=== PATIENT | female | born 1985 | race Caucasian/White ===

== ENCOUNTER 2024-02-13 20:53 | Emergency (ER) | payer BC ==
--- OUTSIDE RECORDS SUMMARY | 2024-02-13 20:56 | XMS REPORT | Continuity of Care Document ---
Author Name Unknown Address [address] [facility]. [address] [place] [address] [facility] Address [address] [facility] [address] [place] [address] Care Team Providers Care Line Production Cook Name Role Phone PCP, PATIENT DOES NOT HAVE A Primary Care Physic frannie Unavailable MERARI ABREU Attending Clinician Unavailable Lab, Ang - Db Attending Clinician Unavailable Merari López Attending Clinician [phone] Denita Soni MD Attending Clinician [phone] DAVID MCKEON Attending Clinician Unavailable Doctor Unassigned, [place] Attending Clinician U navailable DENITA SONI Attending Clinician Unavailable CHRETIEN_F Attending Clinician Unavailable David Mckeon MD Attending Clinician [phone] JESSICA SANCHEZ Attending Clinician Unavailable Kanwal Chisholm Attending Clinician Jessica Sanchez MD Attending Clinician [phone] DENITA SONI Admitting Clinician Unavailable DEZ_Martin Admitting Clinician Unavailable Payers Payer Name Policy Type Policy Number Effective Date Expirati on Date Source BLUE ESSENTIALS HMO [id number] 00:00:00 [place] [id number] 2021 00:00:00 Problems Condition Name Condition Details Condition Category Status Onset Date Resolution Date Last Treatment Date Treating Clinician Comments Source Wesley' s thyroiditi s Wesley' s thyroiditi s Disease Active 03-09 00:00: 00 [facility] Hypothyroi dism Hypothyroi dism Problem Active 05-16 00:00: 00 [facility] Pain of right knee joint Pain of Right Knee Joint Problem Active 05-13 00:00: 00 [facility] Epidermal nevus Epidermal Nevus Problem Active 05-13 00:00: 00 [facility] No known active problems No known active problems Disease [facility] Allergies, Adverse Reactions, Alerts Allergy Name Allergy Type Status Severity Reaction(s) Onset Date Inactive Date Treating Clinician Comments Source NO KNOWN ALLERGIE S Drug Class Active [facility] Social History Social Habit Start Date Stop Date Quantity Comments Source Gender identity [facility] Sexual orientation [facility] History SDOH Alcohol Frequency [facility] History SDOH Alcohol Std Drinks [facility] History SDOH Alcohol Binge [facility] Tobacco use and exposure 2024-02-05 00:00:00 2024-02-05 00:00:00 Smokeless tobacco non-user [facility] Alcohol intake 2024-02-05 00:00:00 2024-02-05 00:00:00 Current drinker of alcohol (finding) [facility] History of Social function 2024-02-05 00:00:00 2024-02-05 00:00:00 [facility] Exposure to SARS-CoV-2 (event) 2023-02-27 00:00:00 2023-03-09 15:39:00 Not sure [facility] Alcohol Comment 2021-11-07 00:00:00 2021-11-07 00:00:00 occasionally [facility] Sex Assigned At 1985 00:00:00 1985 00:00:00 [facility] Smoking Status Start Date Stop Date Source Former Smoker [facility] Never smoked tobacco [facility] Medications Ordered Medication Name Filled Medication Name Start Date Stop Date Current Medication? Ordering Clinician Indication Dosage Frequency Signature (SIG) Comments Components Source levothyroxi ne 50 mcg tablet 02-04 00:00: 00 Yes [id number] 50ug Take 1 tablet by mouth every morning. Please take Levothyrox ine in the morning on an empty stomach, preferably 60 minutes before food, drinks, or take other meds. The following need to be from the thyroid medication by at least 2 hours: calcium, antacids, iron, anything for stomach acid, or soy protein (i.e. soy milk or tofu). If you miss a dose, take it as soon as you remember. [facility] levothyroxi ne 50 mcg tablet 2022-11 2-29 00:00: 00 Yes [id number] 50ug Take 1 tablet by mouth every morning. [facility] levothyroxi ne 50 mcg tablet 9- 00:00: 00 11-03 00:00 :00 No [id number] 50ug Take 1 tablet by mouth every morning. [facility] levothyroxi ne 50 mcg tablet 7- 00:00: 00 07-29 00:00 :00 No [id number] 50ug Take 1 tablet by mouth every morning. [facility] levothyroxi ne 50 mcg tablet 0 4-05 00:00: 00 05-07 00:00 :00 No [id number] 50ug Take 1 tablet by mouth every morning. [facility] levothyroxi ne 50 mcg tablet 0 3-30 00:00: 00 02-11 00:00 :00 No [id number] TAKE 1 TABLET BY MOUTH EVERY DAY IN THE MORNING [facility] levothyroxi ne 50 mcg tablet 2021-11 0-06 00:00: 00 02-05 00:00 :00 No [id number] 50ug Take 1 tablet by mouth every morning. [facility] No known medications 8-02 08:30: 39 No No known medication s [facility] levothyroxi ne 25 mcg tablet 0 7-08 00:00: 00 08-14 00:00 :00 No TAKE 1 TABLET BY MOUTH EVERY DAY DIRECTED [facility] meloxicam 7.5 mg tablet Take 1 tablet every day by oral route. meloxicam 7.5 mg tablet Take 1 tablet every day by oral route. No 1 Q1D meloxicam 7.5 mg tablet Take 1 tablet every day by oral route. [facility] Vital Signs Vital Name Observation Time Observation Value Rivka salazar BP Diastolic 2023-06-11 00:00:00 72 mm[Hg] [facility] Body Weight 2023-06-11 00:00:00 3038.4 [oz_av] [facility] BP Systolic 2023-06-11 00:00:00 123 mm[Hg] [facility] [place] [place] Systolic blood pressure 2023-03-09 20:56:00 129 mm[Hg] [facility] Diastolic blood pressure 2023-03-09 20:56:00 84 mm[Hg] [facility] Body weight 2023-03-09 20:56:00 80.196 kg [facility] BMI 2023-03-09 20:56:00 30.35 kg/m2 [facility] Systolic blood pressure 2022-06-10 13:31:00 129 mm[Hg] [facility] Diastolic blood pressure 2022-06-10 13:31:00 85 mm[Hg] [facility] Heart rate 2022-06-10 13:31:00 90 /min [facility] Body height 2022-06-10 13:31:00 162.6 cm [facility] Body weight 2022-06-10 13:31:00 82.056 kg [facility] BMI 2022-06-10 13:31:00 31.05 kg/m2 [facility] Oxygen saturation in Arterial blood by Pulse oximetry 2022-06-10 13:31:00 99 /min [facility] BP Diastolic 2022-05-13 00:00:00 73 mm[Hg] [facility] Height 2022-05-13 00:00:00 64 [in_i] [facility] BMI (Body Mass Index) 2022-05-13 00:00:00 30.8 kg/m2 [facility] BP Systolic 2022-05-13 00:00:00 106 mm[Hg] [facility] [place] Body Weight 2022-05-13 00:00:00 2867.2 [oz_av] [facility] Procedures Procedure Date / Time Performed Performing Clinician Source REFERRAL- REQUEST/RESPONSE 2023-08-11 05:01:00 Doctor Unassigned, [place] [facility] INSURANCE CORRESPONDENCE 2023-06-30 05:01:00 Doc tor Unassigned, [place] [facility] REFERRAL- REQUEST/RESPONSE 2023-06-11 05:01:00 Doctor Unassigned, [place] [facility] REFERRAL- REQUEST/RESPONSE 2022-06-04 05:01:00 Doctor Unassigned, [place] [facility] Plan of Care Planned Activity Planned Date Details Comments Source Diagnostic Test Pending 2023-06-11 00:00:00 CMP, serum or plasma [code = CMP, serum or plasma] [facility] Diagnostic Test Pending 2023-06-11 00:00:00 CBC w/ auto diff [code = CBC w/ auto diff] [facility] Diagnostic Test Pending 2023-06-11 00:00:00 vitamin D, 25-hydroxy, total, serum [code = vitamin D, 25-hydroxy, total, serum] [facility] Diagnostic Test Pending 2023-06-11 00:00:00 HbA1c (hemoglobin A1c), blood [code = HbA1c (hemoglobin A1c), blood] [facility] Diagnostic Test Pending 2023-06-11 00:00:00 TSH + free T4, serum [code = TSH + free T4, serum] [facility] Diagnostic Test Pending 2023-06-11 00:00:00 lipid panel, serum [code = lipid panel, serum] [facility] Diagnostic Test Pending 2023-06-11 00:00:00 insulin, serum [code = insulin, serum] [facility] Instructions 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 Shop Attendant Visit Lab, Merari Zaman [facility] 1.2.840.114 350.1.13.10 4.2.7.2.686 [id number] [facility] 2023-11-03 00:00:00 2023-11-03 00:00:00 Refill Yessi, [facility] 1.840.114 350.1.13.10 4.2.7.2.686 [id number] [facility] 2023-10-27 00:00:00 2023-10-27 00:00:00 Refill Yessi, [facility] 1.84.114 350.1.13.10 4.2.7.2.686 [id number] [facility] 2023-08-12 16:00:00 2023-08-12 16:00:00 Outpatient DAVID CURRY [facility] [id number] [facility] 2023-08-11 00:00:00 2023-08-11 00:00:00 Orders Only Doctor Unassigned, [place] [address]..114 350.1.13.10 4.2.7.2.686 [id number] [id number] [facility] 2023-08-11 00:00:00 2023-08-11 00:00:00 Patient Secure Msg Doctor Unassigned, [place] [facility] 1..114 350.1.13.10 4.2.7.2.686 [id number] [facility] 2023-07-29 00:00:00 2023-07-29 00:00:00 Refill Yessi, [facility] 1..840.114 350.1.13.10 4.2.7.2.686 [id number] [facility] 2023-07-23 00:00:00 2023-07-23 00:00:00 Patient Secure Msg Soni [facility] 1..840.114 350.1.13.10 4.2.7.2.686 [id number] [facility] 2023-07-17 15:40:57 2023-07-17 23:59:00 Outpatient R DENITA SONI [facility] [id number] [facility] 2023-07-17 15:30:00 2023-07-17 23:59:00 Hospital Encounter Denita Soni [facility] 1..840.114 350.1.13.10 4.2.7.2.686 [id number] [facility] 2023-06-30 00:00:00 2023-06-30 00:00:00 Orders Only Doctor Unassigned, [place] [facility] 1..840.114 350.1.13.10 4.2.7.2.686 [id number] [facility] 2023-06-11 00:00:00 2023-06-11 00:00:00 Outpatient RUDY [facility] [id number] [facility] 2023-06-11 00:00:00 2023-06-11 00:00:00 Kanwal Chisholm APRN-JESÚS C: [address] [place] [address], [address], [place] [address] , Ph. [facility] [id number] [facility] 2023-06-11 00:00:00 2023-06-11 00:00:00 Orders Only Doctor Unassigned, [place] [facility] 1.114 350.1.13.10 4.2.7.2.686 [id number] [facility] 2023-05-08 00:00:00 2023-05-08 00:00:00 Refill Linda [facility] [place] [place]?[facility] 1..114 350.1.13.10 4.2.7.2.686 [id number] [facility] 2023-05-07 00:00:00 2023-05-07 00:00:00 Refill Linda [facility] [place] [place]?[facility] 1.114 350.1.13.10 4.2.7.2.686 [id number] [facility] 2023-05-01 13:30:00 2023-05-01 13:30:00 Outpatient JESSICA COUGHLIN [facility] [id number] [facility] 2023-03-22 00:00:00 2023-03-22 00:00:00 Patient Secure g Yessi [facility] 1.114 350.1.13.10 4.2.7.2.686 [id number] [facility] 2023-03-19 00:00:00 2023-03-19 00:00:00 Patient Secure Msg Doctor Unassigned, [place] [facility] 1.114 350.1.13.10 4.2.7.2.686 [id number] [facility] 2023-03-09 17:00:00 2023-03-09 17:15:00 Skate Shop Attendant Visit Lab, Jay Soni [facility] 1.2.840.114 350.1.13.10 4.2.7.2.686 [id number] [facility] 2023-03-09 16:30:00 2023-03-09 16:42:03 Outpatient R DENITA SONI [facility] [id number] [facility] 2023-03-09 16:30:00 2023-03-09 16:42:03 Office Visit Yessi [facility] JORD[facility] 1.2840.114 350.1.13.10 4.2.7.2.686 [id number] [facility] 2023-02-11 00:00:00 2023-02-11 00:00:00 [facility] 1.2840.114 350.1.13.10 4.2.7.2.686 [id number] [facility] 2023-02-10 00:00:00 2023-02-10 00:00:00 Telephone Denita Soni [facility] JORDY?[facility] 1.2840.114 350.1.13.10 4.2.7.2.686 [id number] [facility] 2023-02-05 00:00:00 2023-02-05 00:00:00 [facility] 1.2840.114 350.1.13.10 4.2.7.2.686 [id number] [facility] 2022-11-10 00:00:00 2022-11-10 00:00:00 [facility] 1.2840.114 350.1.13.10 4.2.7.2.686 [id number] [facility] 2022-11-10 00:00:00 2022-11-10 00:00:00 Patient Secure Msg Doctor Unassigned, [place] [facility] 1.84.114 350.1.13.10 4.2.7.2.686 [id number] [facility] 2022-10-28 09:30:00 2022-10-28 09:30:00 Outpatient R [facility] [id number] [facility] 2022-08-14 00:00:00 2022-08-14 00:00:00 Refill Linda [facility] [place] [place]?[facility] 1.840.114 350.1.13.10 4.2.7.2.686 [id number] [facility] 2022-06-20 00:00:00 2022-06-20 00:00:00 Outpatient R [facility] [id number] [facility] 2022-06-10 09:15:00 2022-06-10 09:39:33 Outpatient R [facility] [id number] [facility] 2022-06-10 09:15:00 2022-06-10 09:30:00 Skate Shop Attendant Visit Lab, Ang - Db Linda [facility] [place] [place]?[facility] 1.840.114 350.1.13.10 4.2.7.2.686 [id number] [facility] 2022-06-10 08:30:00 2022-06-10 09:20:00 Outpatient R [facility] [id number] [facility] 2022-06-10 08:30:00 2022-06-10 09:20:00 Office Visit Linda [facility] [place] [place]?[facility] 1.840.114 350.1.13.10 4.2.7.2.686 [id number] [facility] 2022-06-04 00:00:00 2022-06-04 00:00:00 Orders Only Doctor Unassigned, [place] [facility] 1.2.840.114 350.1.13.10 4.2.7.2.686 [id number] [facility] 2022-05-13 00:00:00 2022-05-13 00:00:00 Outpatient CHRETIEN_F [facility] [id number] [facility] 2022-05-13 00:00:00 2022-05-13 00:00:00 Outpatient Kanwal Chisholm [facility] [id number] 2022-05-13 00:00:00 2022-05-13 00:00:00 Kanwal Chisholm APRN-PUMPING STATION ENGINEER-B C: [address] [place] [address], [address] [address] , Ph. [facility] [id number] [facility] 2022-05-08 04:21:00 2022-05-08 04:21:00 Outpatient CHRETIEN_F [facility] [id number] [facility] 2022-05-02 13:30:00 2022-05-02 14:19:40 Outpatient JESSICA COUGHLIN [facility] [id number] [facility] 2022-05-02 13:30:00 2022-05-02 14:19:40 Office Visit Jessica Sanchez [facility] 1.2.840.114 350.1.13.10 4.2.7.2.686 [id number] [facility] 2022-05-02 13:30:00 2022-05-02 14:19:40 Outpatient JESSICA COUGHLIN [facility] [id number] [facility] 2021-11-07 09:30:00 2021-11-07 10:37:12 Office Visit Jessica Sanchez [facility] 1..840.114 350.1.13.10 4.2.7.2.686 [id number] [facility] 2021-11-07 09:30:00 2021-11-07 10:37:12 Outpatient R JESSICA SANCHEZ [facility] [id number] [facility] 2021-11-07 00:00:00 2021-11-07 00:00:00 Orders Only Doctor Unassigned, [place] [facility] 1..840.114 350.1.13.10 4.2.7.2.686 [id number] [facility] Notes Date/Time Note Provider Source 2024-02-05 12:00:00 A9WG7sL2dCoAJghXYNP3 lamSwriwyP7/XD 9QPDfN52bCSrUH81bFC02QmTEaKKNc3734 -03-29T12:00:00 Images from the original note were not included.Venipuncture collection performed by clean technique on the left anticubitus. Total of 1 attempts were made. Slight pressure and a bandage/dressing were applied to the site(s). The patient experienced no complications. The following specimens were processed according to instructions and sent to [facility] laboratories per lab order on TODAYLT BLUESST 1 RSTREDLAVPPTDK GREEN (LiHep)DK GREEN (SodH)GRAYDK BLUE (K2)DK BLUE (S)ACDBlood CultureNIPT/NTD 85312-2Evajz OirrHV6907-07-08Q26:41:04Nurse NoteTXT1.2.840.192564.1.13.104.2.7 .2.468365|[id number] for patient ovgr46424-7Rgwde NoteLNNARRATIVEFormatted C-CDA narrative text[id number] 94TXYKBZFEWRGFAHLJQHMCKJ8286-28-46 T11:41:041.2.840.677504.1.72.3.15| 1.2.840.543809.1.13.104.2.7.2.7278 [id number] [facility] 2023-11-06 13:40:14 I4O+xcXDZVaB/flfzcMk jQT/fWBOTfh7vt fX0tkSmZ3+Iu0h2AL+lkDYzm/oXCAg96752022T13:40:14 Patient scheduled next follow up. Sending refills on thyroid medication 35223-7Dfjyndhhf encounter RfwoNU2908-49-36N27:41:01Telephone encounter NoteTXT1.2.840.928032.1.13.104.2.7 .2.695141|[id number] for patient pxmx76279-5OimuGHTXCJLGQGWZeohqnxs d C-CDA narrative [id number] D Jet[place] [id number] 17WTFOEXRZPHBAWVELQLPKBH7145-46-58 T13:41:011.2.840.476918.1.72.3.15| 1.2.840.132410.1.13.104.2.7.2.7278 [id number] Dee Baugh LVN [facility] 2023-11-06 10:43:20 U73eWGuqF1YHvmRb9HFM 0qWXDUiZK5SHUc I0ZglpJFrauVO4HCyLejBYfku1u1Vh0063 -12-29T10:43:20 Marichuy Anderson is a 38 year old femalePt is calling wanting to know status on refill for thyroid medication until f/u appointment. States she is completely out of medicine.Please advise, thank you. 30763-4Ofkbxyrma encounter OszbYI2711-03-19L17:44:26Telephone encounter NoteTXT1.2.840.864169.1.13.104.2.7 .2.265657|[id number] for patient mhnp25827-8FhegQQFQKPXYHQKLosexikd d C-CDA narrative etvz928362045Wcjml [address] Zz[id number] 33KPLUCRBBLFQWCGWAIAOQAP0290-53-78 T10:44:261.2.840.434278.1.72.3.15| 1.2.840.892673.1.13.104.2.7.2.7278 [id number] Ifeoma Matson [facility] 2023-11-04 14:13:00 U6dqGYC/NrNvPrihpU6r HgedeiwktAyzpA X1vBKZnoxcZJcCRtjtzaymS/cj+1TV4002T14:13:00 Marichuy Anderson is a 38 year old female pt called in regards of her refill being denied. Pt states that she has a f/u appt w/PLATFORM ENGINEER Merari Abreu on 02/23/24. Pt states that her son was having health issues and was unable to request additional time off for her appts, that is why her f/u were cancelled. Pt is requesting refill for levothyroxine 50 mcg tabletPlease adviseCVS/pharmacy #[id number] - [address]: Hnkcbsnigsehxu signed by Yessenia Vieira at 11/04/2023 2:16 PM HMR46777-5Duscjsezn encounter OvszVR5548-35-39G90:16:51Telephone encounter NoteTXT1.2.840.458194.1.13.104.2.7 .2.548097|[id number] for patient tkrq40065-8WuxvBPSOZOOKBSOQhuumeuq d C-CDA narrative [id number] [id number] 90QBOXNTFXQOVFDPDZHCUTEA4602-92-10 T14:16:511.2.840.762734.1.72.3.15| 1.2.840.752399.1.13.104.2.7.2.7278 [id number] Yessenia Vieira [facility] 2023-11-04 09:33:47 FB9+9UeArM0RtoVxhqLC zFntmYhmHX+b3y CpghbVYbgc7c67UZ9rY5sKRWcUpo5H8401 -12-27T09:33:47 MARIA DOLORES 03/09/23NOV not scheduled, patient cancelled on 08/12 and 09/08.Message sent via [employer] to let her know once her follow up is rescheduled we can send in refills accordingly. Routing to [facility] to reach out to reschedule and once done route back to me so I can send in refill 87678-0Rpckcdmey encounter NfxlXW7262-67-48T37:36:33Telephone encounter NoteTXT1.2.840.728042.1.13.104.2.7 .2.212603|[id number] for patient uqap01948-2DnzqQOKHJWWPNYLLzwwgueq d C-CDA narrative text[id number] 77MFXBREPTWLAVIOZGRJZHMW8394-73-42 T09:36:331.2.840.104063.1.72.3.15| 1.2.840.153426.1.13.104.2.7.2.7278 [id number] [facility] 2023-10-29 11:20:56 KDZ1woiHHovBmvavDryg qX2oWBS6w9QnrG +hecui7WGIvAvEKVIr/73CdYewv9Yz5733 -12-21T11:20:56 Attempted to contact patient to schedule f/u appt. For refills. Patient did not answer [place] . 72004-4Udhohvufs encounter QhhfOK3061-88-64C22:22:15Telephone encounter NoteTXT1.2.840.780721.1.13.104.2.7 .2.063094|[id number] for patient yzlx96646-6LikzKWMDSWJLFNLZlfiaxqw d C-CDA narrative rawj91118400Uchxlyxj M [address] ZghbMdttpmppwWtrpnvxpuPBXM32959311 40OOMXXCYHSWAHZYAECYVEEU6999-02-16 T11:22:151.2.840.793265.1.72.3.15| 1.2.840.621617.1.13.104.2.7.2.7278 [id number] Chelsea Ndiaye [facility]"
[2024-02-13] MEDS ORDERED: HYDROCODONE/APAP 7.5/325 MG TAB ONE (21:35)
--- NOTE | 2024-02-13 21:57 | RAD REPORT ---
EXAM DESCRIPTION: CT - Head Brain Wo Cont - 02/13/2024 9:51 pm CLINICAL HISTORY: head injury COMPARISON: <Comparisons> TECHNIQUE: All CT scans are performed using dose optimization technique as appropriate and may inclu de automated exposure control or mA/KV adjustment according to patient size. FINDINGS: No intracranial hemorrhage, hydrocephalus or extra-axial fluid collection.No areas of brai n edema or evidence of midline shift. The paranasal sinuses and mastoids are clear. The calvarium is intact. IMPRESSION: No acute intracranial abnormality.
--- NOTE | 2024-02-13 22:14 | RAD REPORT ---
EXAM DESCRIPTION: CT - CTFB CLINICAL HISTORY: head injury COMPARISON: Head Brain Wo Cont dated 02/13/2024 TECHNIQUE: Axial 2 mm thick images of the face were obtained with sagittal and coronal reconstructio n images. All CT scans are performed using dose optimization technique as appropriate and may include automated exposure control or mA/KV adjustment according to patient size. FINDINGS: No acute facial bone fracture is seen.The mandible is intact. The globes and orbital contents are grossly unremarkable.The paranasal sinuses and mastoids are clear . Right forehead hematoma. IMPRESSION: Negative for facial bone fracture.
[2024-02-13] MEDS ORDERED: DERMABOND SKIN ADHESIVE TOP ONE (23:08)
[2024-02-13] MEDS ORDERED: TDAP (DIPHTH,PERTUSS(ACELL),TET VAC) 0.5 ML VIAL IMVAC ONE (23:09)
--- NOTE | 2024-02-13 23:23 | ER ---
Nurse's Notes [facility] Name: Amy Davis Age: 38 yrs Sex: Female : 1985 Arrival Date: 02/13/2024 Time: 20:53 Bed 6 Private MD: Diagnosis: Laceration without foreign body of unspecified part of head;Contusion of unspecified part of head, initial encounter Presentation: 02/12 21:04 Chief complaint: Patient states: Hit in head with softball. Coronavirus screen: At this vc1 time, the client does not indicate any symptoms associated with coronavirus-19. Ebola Screen: Patient negative for fever greater than or equal to 101.5 degrees Fahrenheit, and additional compatible Ebola Virus Disease symptoms Patient denies exposure to infectious person. Patient denies travel to an Ebola-affected area in the 21 days before illness onset. No symptoms or risks identified at this time. Initial Sepsis Screen: Does the patient meet any 2 criteria? No. Patient's initial sepsis screen is negative. Does the patient have a suspected source of infection? No. Patient's initial sepsis screen is negative. Risk Assessment: Do you want to hurt yourself or someone else? Patient reports no desire to harm self or others. Onset of symptoms was February 13, 2024 at 20:45. 21:04 Method Of Arrival: Wheelchair vc1 21:04 Acuity: MICK 3 vc1 Triage Assessment: 21:06 General: Appears in no apparent distress. uncomfortable, Behavior is calm, cooperative, vc1 appropriate for age. Pain: Complains of pain in outer aspect of right eyebrow Pain does not radiate. Pain currently is 8 out of 10 on a pain scale. Pain began suddenly, Is continuous, Aggravated by opening mouth Noted to be grimacing, guarding, resistant to movement. EENT: No deficits noted. No signs and/or symptoms were reported regarding the EENT system. Denies blurred vision. Neuro: Level of Consciousness is awake, alert, obeys commands, Oriented to person, place, time, situation, Appropriate for age Pupils are PERRLA. Cardiovascular: No deficits noted. Respiratory: Airway is patent Respiratory effort is even, unlabored, Respiratory pattern is regular, symmetrical. Derm: Wound noted outer aspect of right eyebrow. 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 Flu vaccine is not up to date. - Infectious Disease History:: Denies. - Social history:: Smoking status: Reported history of juuling and/or vaping. Screenin:09 [facility] ED Fall Risk Assessment (Adult) History of falling in the last 3 months, vc1 including since admission No falls in past 3 months (0 pts) Confusion or Disorientation No (0 pts) Intoxicated or Sedated No (0 pts) Impaired Gait No (0 pts) Mobility Assist Device Used No (0 pt) Altered Elimination No (0 pt) Score/Fall Risk Level 0 - 2 = Low Risk Oriented to surroundings, Maintained a safe environment, Educated pt \T\ family on fall prevention, incl call for assistance when getting out of bed. Abuse screen: Denies threats or abuse. Nutritional screening: No deficits noted. Tuberculosis screening: No symptoms or risk factors identified. Assessment: 21:29 General: Appears in no apparent distress. comfortable, Behavior is calm, cooperative, jb4 appropriate for age. Pain: Complains of pain in right side of forehead and right christian Pain does not radiate. Pain currently is 8 out of 10 on a pain scale. Neuro: Level of Consciousness is awake, alert, obeys commands, Oriented to person, place, time, situation. Cardiovascular: Patient's skin is warm and dry. Respiratory: Airway is patent Respiratory effort is even, unlabored, Respiratory pattern is regular, symmetrical. GI: No signs and/or symptoms were reported involving the gastrointestinal system. : No signs and/or symptoms were reported regarding the genitourinary system. EENT: No signs and/or symptoms were reported regarding the EENT system. Derm: Skin is pink, warm \T\ dry. Musculoskeletal: Circulation, motion, and sensation intact. Range of motion: intact in all extremities. Injury Description: Laceration sustained to right side of forehead is clean, 0.5 to 2.5 cm long, was sustained 30-60 minutes ago. a small amount of bleeding noted at this time. 22:26 Reassessment: Patient appears in no apparent distress at this time. Patient and/or jb4 family updated on plan of care and expected duration. Pain level reassessed. Patient is alert, oriented x 3, equal unlabored respirations, skin warm/dry/pink. 23:36 Reassessment: Patient appears in no apparent distress at this time. Patient and/or jb4 family updated on plan of care and expected duration. Pain level reassessed. Patient is alert, oriented x 3, equal unlabored respirations, skin warm/dry/pink. Vital Signs: 21:04 BP 138 / 91 Sitting; Pulse 93 MON; Resp 14 S; Temp 98.6(O); Pulse Ox 96% on R/A; Weight vc1 86.18 kg (R); Height 5 ft. 4 in. (R); Pain 8/10; 22:26 BP 133 / 88; Pulse 81; Resp 16; Pulse Ox 100% on R/A; jb4 21:04 Body Mass Index 32.61 (86.18 kg, 162.56 cm) vc1 21:04 Pain Scale: Adult vc1 Patricia Coma Score: 21:40 Eye Response: spontaneous(4). Motor Response: obeys commands(6). Verbal Response: cp oriented(5). Total: 15. ED Course: 20:57 Patient arrived in ED. jj6 21:01 Luis Crespo, RN is Primary Nurse. jb4 21:04 Dayday To PA is PHCP. cp 21:04 Ke Darby MD is Attending Physician. cp 21:06 Triage completed. vc1 21:08 Arm band placed on right wrist. vc1 21:09 Patient has correct armband on for positive identification. Bed in low position. Call vc1 light in reach. Pulse ox on. NIBP on. 21:50 CT Head Brain wo Cont In Process Unspecified. EDMS 22:00 CT Facial Bones W/O Con In Process Unspecified. EDMS 23:36 Provided Education on: discharge instructions. jb4 23:36 Assist provider with laceration repair on right side of forehead that was 2.5 cm. or jb4 less using Dermabond. Performed by Dayday MILTON. Patient did not have IV access during this emergency room visit. Administered Medications: 21:38 Drug: Hydrocodone-Acetaminophen PO (7.5 mg-325 mg) 1 tabs PO once; RASS on ADMIN: jb4 Combtv4, Very Agttd3, Agttd2, Rstlss1, AlertClm0, Drwsy-1, Lt Sdtn-2, Mod Sdtn-3, Dp Sdtn-4, UnArsble-5 Route: PO; 23:26 CANCELLED (Other Intervention Used): tetanus-diphtheria toxoidadult 0.5 ml IM once; jb4 Provide Vaccine Information Statement (VIS). 23:26 Drug: Boostrix Tdap IM 0.5 ml IM once; as a single dose Route: IM; Site: right deltoid; jb4 Medication: 23:30 Vaccine Information Statement (VIS) provided today. Questions and/or concerns jb4 addressed. VIS edition date: June 14, 2021. Outcome: 23:22 Discharge ordered by . jony 23:36 Discharged to home ambulatory, jb4 23:36 Condition: stable 23:36 Discharge instructions given to patient, Instructed on discharge instructions, follow up and referral plans. Demonstrated understanding of instructions, follow-up care, 23:38 Patient left the ED. jb4 Signatures: Dispatcher [employer] EDMS Dayday To PA PA cp Bryson, James, RN RN jb4 Lauryn [id number] Geovanna Toledo, RN RN vc1
--- NOTE | 2024-02-13 23:23 | EDPHYS ---
Physician Documentation [facility] Name: Amy Davis Age: 38 yrs Sex: Female : 1985 Arrival Date: 02/13/2024 Time: 20:53 Bed 6 Private MD: ED Physician Ke Darby HPI: 02/12 21:40 This 38 yrs old Female presents to ER via Wheelchair with complaints of Head Injury cp Without LOC-Adult, Laceration To Head. 21:40 The patient or guardian reports injury, a laceration, swelling, tenderness. The cp complaints affect the right sabianist. Context of injury: The problem was sustained outdoors, resulted from a direct blow, soft ball. Onset: The symptoms/episode began/occurred just prior to arrival. Associated signs and symptoms: Loss of consciousness: This patient did not experience any loss of consciousness. Pertinent positives: dazed, headache, Pertinent negatives: neck pain, seizure, vomiting. Severity of symptoms: in the emergency department the symptoms have improved. 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 Flu vaccine is not up to date. - Infectious Disease History:: Denies. - Social history:: Smoking status: Reported history of juuling and/or vaping. ROS: 21:45 Neuro: Positive for headache, Negative for altered mental status, seizure activity, cp weakness, 21:45 Constitutional: Negative for body aches, chills, fever, poor PO intake, cp 21:45 Neck: Negative for pain with movement, pain at rest, stiffness, 21:45 Abdomen/GI: Negative for abdominal pain, vomiting, diarrhea, constipation, 21:45 Skin: Positive for laceration(s), of the right sabianist, 21:45 All other systems are negative, Exam: 21:50 Constitutional: The patient appears in no acute distress, alert, awake, cp non-diaphoretic, non-toxic, well developed, well nourished, uncomfortable, 21:50 Head/face: Noted is a laceration(s), that is superficial, of the right sabianist, cp swelling, that is moderate, tenderness, that is moderate, 21:50 Eyes: Periorbital structures: appear normal, Pupils: equal, round, and reactive to light and accomodation, Extraocular movements: intact throughout, Conjunctiva: normal, no exudate, no injection, Lids and lashes: appear normal, bilaterally, 21:50 ENT: External ear(s): are unremarkable, Nose: is normal, Mouth: Lips: moist, Oral mucosa: pink and intact, moist, Posterior pharynx: is normal, airway is patent, no erythema, no exudate, 21:50 Neck: C-spine: vertebral tenderness, is not appreciated, crepitus, is not appreciated, ROM/movement: is normal, is supple, without pain, no range of motions limitations, 21:50 Chest/axilla: Inspection: normal, Palpation: crepitus, is not appreciated, tenderness, is not appreciated, 21:50 Cardiovascular: Rate: normal, Rhythm: regular, 21:50 Respiratory: the patient does not display signs of respiratory distress, Respirations: normal, no use of accessory muscles, no retractions, labored breathing, is not present, Breath sounds: are clear throughout, no decreased breath sounds, no stridor, no wheezing, 21:50 Abdomen/GI: Inspection: abdomen appears normal, Palpation: abdomen is soft and non-tender, in all quadrants, 21:50 Back: pain, is absent, ROM is normal, 21:50 Neuro: Orientation: to person, place \T\ time. Mentation: is normal, Cerebellar function: is grossly normal, Motor: moves all fours, strength is normal, Sensation: is normal, Gait: is steady, at a normal pace, without difficulty, Vital Signs: 21:04 BP 138 / 91 Sitting; Pulse 93 MON; Resp 14 S; Temp 98.6(O); Pulse Ox 96% on R/A; Weight vc1 86.18 kg (R); Height 5 ft. 4 in. (R); Pain 8/10; 22:26 BP 133 / 88; Pulse 81; Resp 16; Pulse Ox 100% on R/A; jb4 21:04 Body Mass Index 32.61 (86.18 kg, 162.56 cm) vc1 21:04 Pain Scale: Adult vc1 Patricia Coma Score: 21:40 Eye Response: spontaneous(4). Motor Response: obeys commands(6). Verbal Response: cp oriented(5). Total: 15. Laceration: 23:40 Wound Repair of 2cm ( 0.8in ) subcutaneous laceration to right sabianist. Linear shaped.. cp Distal neuro/vascular/tendon intact. Wound prep: Simple cleansing by me. Skin closed with thin layer Adhesive skin closure using Dermabond. Patient tolerated well. MDM: 21:04 Patient medically screened. cp 23:21 Data reviewed: vital signs, nurses notes, radiologic studies, CT scan, and as a result, cp I will discharge patient. 23:21 Differential diagnosis: Contusion of head, Hematoma on head, Laceration of Intracranial cp bleed- Concussion cerebral contusion. I considered the following discharge prescriptions or medication management in the emergency department Medications were administered in the Emergency Department. See MAR. Counseling: I had a detailed discussion with the patient and/or guardian regarding the historical points, exam findings, and any diagnostic results supporting the discharge/admit diagnosis, radiology results, to return to the emergency department if symptoms worsen or persist or if there are any questions or concerns that arise at home. Special discussion: Based on the patient's history, exam and DX evaluation, there is no indication for emergent intervention or inpatient TX. It is understood by the patient/guardian that if the SXs persist or worsen they need to return immediately for re-evaluation. 02/12 21:33 Order name: CT Head Brain wo Cont; Complete Time: 22:22 cp 02/12 22:22 Interpretation: Report reviewed. 02/12 21:33 Order name: CT Facial Bones W/O Con; Complete Time: 22:22 cp 02/12 22:22 Interpretation: Report reviewed. 02/12 22:51 Order name: Dermabond; Complete Time: 23:26 cp 02/12 22:51 Order name: Wound Care: please clean wound; Complete Time: 23:35 cp Administered Medications: 21:38 Drug: Hydrocodone-Acetaminophen PO (7.5 mg-325 mg) 1 tabs PO once; RASS on ADMIN: jb4 Combtv4, Very Agttd3, Agttd2, Rstlss1, AlertClm0, Drwsy-1, Lt Sdtn-2, Mod Sdtn-3, Dp Sdtn-4, UnArsble-5 Route: PO; 23:26 CANCELLED (Other Intervention Used): tetanus-diphtheria toxoidadult 0.5 ml IM once; jb4 Provide Vaccine Information Statement (VIS). 23:26 Drug: Boostrix Tdap IM 0.5 ml IM once; as a single dose Route: IM; Site: right deltoid; jb4 Disposition Summary: 02/13/24 23:22 Discharge Ordered Notes: Location: Home cp Problem: new cp Symptoms: have improved cp Condition: Stable cp Diagnosis - Laceration without foreign body of unspecified part of head cp - Contusion of unspecified part of head, initial encounter cp Followup: cp - With: Private Physician - When: 2 - 3 days - Reason: Recheck today's complaints Discharge Instructions: - Discharge Summary Sheet cp - Facial or Scalp Contusion cp - Head Injury, Adult cp - Nonsutured Laceration Care cp - Facial Laceration cp Forms: - Medication Reconciliation Form cp - Thank You Letter cp - Antibiotic Education cp - Prescription Opioid Use cp - Patient Portal Instructions cp - Leadership Thank You Letter cp - Work release form jb4 Addendum: 02/15/2024 01:18 Co-signature as Attending Physician, Ke Darby MD I reviewed the patient's care r t provided by the Advanced Practice Provider and agree with the diagnosis and treatment plan. Signatures: Dispatcher [employer] EDMS Dayday To PA PA cp Luis Crespo RN RN jb4 Geovanna Toledo RN RN vc1 Ke Darby MD MD rt Corrections: (The following items were deleted from the chart) 02/12 23:26 22:51 Tetanus-Diphtheria Toxoid IM Adult 0.5 ml IM once; Provide Vaccine Information jb4 Statement (VIS). ordered. cp 23:26 23:26 Tetanus-Diphtheria Toxoid IM Adult 0.5 ml IM once; Provide Vaccine Information jb4 Statement (VIS). ordered. jb4
[2024-02-14 09:12] VITALS: BP 133/88; TEMP 98.6; O2SAT 100
== END 2024-02-13 23:38 | disposition home or self-care (01) ==
LOC: ER 20:53
PROC: 0HQ1XZZ Repair Face Skin, External Approach (ICD-10-PCS; principal; 2024-02-13)
DX: S01.81XA Laceration without foreign body of other part of head, initial encounter (principal)
CPT/HCPCS: 70450; 70486; 76377; 96372; 99284